=== PATIENT | female | born 1980 | race Caucasian/White ===

== ENCOUNTER 2020-10-02 23:47 | Emergency (ER) | payer OTHER, MEDICAID ==
[~2020-10-02] VITALS: Ht 162.6 cm; Wt 52.2 kg
[~2020-10-02 23:47] MED LIST: ACIDOPHILUS PR1 EACH PO; ACYCLOVIR; ACYCLOVIR 400400 MG PO; ADDERALL XR 1010 MG PO; APAP500 PO; ATIVAN0.5 MG PO; AUGMENTIN 875875 MG PO; AVELOX 400 MG400 M1 PO; CIPRO500 MG PO; CIPROFLOXACIN500 M1 PO; CLONAZEPAM 1 MG1 M1 PO; CLONAZEPAM2 MG PO; ERY-TAB500 MG PO; FENTANYL PA25 MCG/HR TRANSDERM; FENTANYL1 EAC1 TD; HYDROGEN PEROX480 M1 MC; HYOSCYAMINE0.375 M2 SUBLING; KLONOPIN; MACROBID 100 M100 M2 PO; NICOTINE TRANSD21 M1 TRANSDERM; NORCO 5-325 TA1 EACH PO; NORVASC5 MG PO; OXYCODONE HCL5 M1 PO; PAXIL10 MG; PAXIL30 MG PO; PERCOCET 5-3251 EACH PO; PHENERGAN 25 MG25 M1; PHENERGAN 25 MG25 M1 PO; POTASSIUM20; POTASSIUM20 PO; PREDNISONE 10 M10 M1 PO; PRILOSEC 10MG C10 M1 PO; PRILOSEC40 MG PO; PROVIGIL 100 M100 M1; PROVIGIL 200 M200 M1 PO; QUETIAPINE FUMA25 MG PO; REGLAN 10 MG TA10 MG PO; TPN; TRAMADOL 50 MG50 MG PO; TRAZODONE HCL50 MG PO; VALACYCLOVIR500 MG PO; VANCOCIN 250 M250 M1 PO; ZANAFLEX2 M1 PO; clindamycin PO
[2020-10-03 00:12] LABS: ABSOLUTE BASOPHILS 0.1 thou/uL (0.0-0.2); ABSOLUTE EOSINOPHILS 0.6 thou/uL (0.0-0.7); ABSOLUTE MONOCYTES 0.7 thou/uL (0.0-1.2); ABSOLUTE NEUTROPHILS 7.6 thou/uL (1.6-8.1); BASOPHILS 1.1 %; EOSINOPHILS 5.2 %; HEMATOCRIT 37.3 % (37.0-47.0); HEMOGLOBIN 12.2 gm/dL (12.0-15.0); LYMPHOCYTES 18.6 %; MCH 28.1 pg (26.0-34.0); MCHC 32.6 g/dL (28.0-37.0); MCV 86.2 fL (80.0-100.0); MONOCYTES 6.2 %; MPV 9.5 fl. (7.2-11.1); NUCLEATED RBCS 0 /100WBC; PLATELET COUNT* 284 thou/uL (150-400); POLYS 68.9 %; RBC 4.34 mil/uL (4.20-5.00); RDW-CV 15.4 % (10.5-14.5)
[2020-10-03 00:25] LABS: ANION GAP 11 mmol/L (7-16); BUN 22 mg/dL (7-18); CALCIUM 8.1 mg/dL (8.5-10.1); CHLORIDE 105 mmol/L (98-107); CO2 23 mmol/L (21-32); CREATININE 1.4 mg/dL (0.6-1.3); GLUCOSE 153 mg/dL (70-99); POTASSIUM 3.2 mmol/L (3.5-5.1); SODIUM 139 mmol/L (136-145)
[2020-10-03 00:29] LABS: ALBUMIN 3.6 g/dL (3.4-5.0); ALKALINE PHOSPHATASE 96 U/L (46-116); LIPASE 159 U/L (73-393); SGOT 15 U/L (15-37); SGPT 21 U/L (30-65); TOTAL BILIRUBIN < 0.1 mg/dL (<0.1-1.0); TOTAL PROTEIN 7.1 g/dL (6.4-8.2)
[2020-10-03 01:12] LABS: URINE BILIRUBIN NEGATIVE (Negative); URINE BLOOD NEGATIVE (Negative); URINE CLARITY CLEAR; URINE COLOR YELLOW; URINE GLUCOSE-RANDOM NEGATIVE (Negative); URINE KETONES NEGATIVE (Negative); URINE LEUKOCYTES-REFLEX NEGATIVE (Negative); URINE NITRITE-REFLEX NEGATIVE (Negative); URINE PROTEIN TRACE (Negative); URINE UROBILINOGEN 0.2 E.U./dl (0.2-1.0)
[2020-10-03] MEDS ORDERED: DOXYCYCLINE 10100 MG PO (01:25)
[2020-10-03] MEDS ORDERED: PREDNISONE50 MG PO (01:25)
[2020-10-03 01:31] VITALS: BP 124/89
== END 2020-10-03 01:32 | disposition home or self-care (01) ==
LOC: M.ERS 23:47
PROVIDERS: Emergency Medicine
DX: R21 Rash and other nonspecific skin eruption (principal); F17.210 Nicotine dependence, cigarettes, uncomplicated; Z88.5 Allergy status to narcotic agent; Z88.6 Allergy status to analgesic agent; Z90.49 Acquired absence of other specified parts of digestive tract

== ENCOUNTER 2021-03-02 11:19 | Emergency (ER) | payer OTHER, MEDICAID ==
[~2021-03-02] VITALS: Ht 162.6 cm; Wt 56.7 kg
[~2021-03-02 11:19] MED LIST changes: +DOXYCYCLINE 10100 MG PO; +PREDNISONE50 MG PO
[2021-03-02] MEDS ORDERED: EFFEXOR XR150 MG PO (11:32)
[2021-03-02 12:11] LABS: ABSOLUTE BASOPHILS 0.1 thou/uL (0.0-0.2); ABSOLUTE EOSINOPHILS 0.2 thou/uL (0.0-0.7); ABSOLUTE LYMPHOCYTES 1.3 thou/uL (0.8-5.3); ABSOLUTE MONOCYTES 0.5 thou/uL (0.0-1.2); ABSOLUTE NEUTROPHILS 5.7 thou/uL (1.6-8.1); BASOPHILS 1.5 %; EOSINOPHILS 2.2 %; HEMATOCRIT 43.8 % (37.0-47.0); HEMOGLOBIN 14.6 gm/dL (12.0-15.0); LYMPHOCYTES 16.6 %; MCH 28.5 pg (26.0-34.0); MCHC 33.3 g/dL (28.0-37.0); MCV 85.6 fL (80.0-100.0); MONOCYTES 6.2 %; MPV 9.2 fl. (7.2-11.1); NUCLEATED RBCS 0 /100WBC; PLATELET COUNT* 306 thou/uL (150-400); POLYS 73.5 %; RBC 5.11 mil/uL (4.20-5.00); RDW-CV 16.7 % (10.5-14.5); WBC 7.7 thou/uL (4.0-11.0)
[2021-03-02 12:20] LABS: CALCIUM 8.5 mg/dL (8.5-10.1); POTASSIUM 3.1 mmol/L (3.5-5.1)
[2021-03-02 12:25] LABS: ALBUMIN 3.8 g/dL (3.4-5.0); TOTAL BILIRUBIN 0.6 mg/dL (<0.1-1.0); TOTAL PROTEIN 7.9 g/dL (6.4-8.2)
[2021-03-02 12:39] VITALS: BP 142/96
== END 2021-03-02 12:39 | disposition left against medical advice (07) ==
LOC: M.ERS 11:19
PROVIDERS: Physician Assistant
DX: E87.6 Hypokalemia (principal); R51.9 Headache, unspecified; R74.8 Abnormal levels of other serum enzymes; F32.9 Major depressive disorder, single episode, unspecified; F17.210 Nicotine dependence, cigarettes, uncomplicated; Z90.89 Acquired absence of other organs; Z90.49 Acquired absence of other specified parts of digestive tract; Z79.899 Other long term (current) drug therapy; Z88.5 Allergy status to narcotic agent